=== PATIENT | male | born 1970 | race Caucasian/White ===

== ENCOUNTER 2019-04-21 21:05 | Emergency (ER) | payer BC, OTHER ==
[~2019-04-21 21:05] MED LIST: NITROGLYCERIN SUBLINGUAL 1/150 0.4 MG TAB SL ONE
[2019-04-21 21:13] VITALS: TEMP 98.5; BMI 33.4
--- NOTE | 2019-04-21 21:44 | PDOC ---
History of Present Illness - History of Present Illness Initial Comments: 04/21/19 22:42 Mr. Aponte is a 48 y/o man with no reported pmhx who presents to the ED with BP >200/100, headache, nausea, chest pains which began this afternoon around 4pm. The patient reports he felt generally tired and weak today and "just not himself". Earlier this evening he was at his father in laws house with his partner and they checked his BP which was >200/100, they then went to a [place] [facility] to recheck the BP with the same results so they brought him to the ED. The pt states he has a PCP but has not seen him in >2yrs. On ROS the pt endorses CP (5/10, substernal, non-radiating, crushing pain), numbness/ weakness in his legs, unsteadiness on his feet, LARIOS, nausea, blurry vision. He denies vomiting, constipation, diarrhea, hot/cold intolerance, dysuria, hematuria or abdominal pain. <Margaret Lomas - Last Filed: 04/22/19 00:01> <Jennifer Zapata - Last Filed: 04/22/19 00:38> - General Chief Complaint: Blood Pressure Problem Stated Complaint: HIGH B/P/HEADACHE/NAUSEA Time Seen by Provider: 04/21/19 21:42 Past History - Travel Traveled outside of the country in the last 30 days: No Close contact w/someone who was outside of country & ill: No - Psycho Social/Smoking Cessation Hx Smoking History: Never smoked Hx Alcohol Use: No Drug/Substance Use Hx: No <Margaret Lomas - Last Filed: 04/22/19 00:01> <Jennifer Zapata - Last Filed: 04/22/19 00:38> - Past Medical History Allergies/Adverse Reactions: Allergies Allergy/AdvReac Type Severity Reaction Status Date / Time No Known Allergies Allergy Verified 04/21/19 21:13 Home Medications: Ambulatory Orders Valsartan [Diovan] 40 mg PO DAILY #30 tablet 04/21/19 Review of Systems - Review of Systems Able to Perform ROS?: Yes Is the patient limited Thai proficient: No Constitutional: Yes: Weakness. No: Chills, Diaphoresis, Fever HEENTM: Yes: Blurred Vision. No: Ear Pain, Throat Pain Respiratory: No: Cough, Orthopnea, Shortness of Breath Cardiac (ROS): Yes: Chest Pain (crushing substernal CP 5-6/10). No: Palpitations, Syncope ABD/GI: Yes: Nausea. No: Abdominal Distended, Constipated, Diarrhea : No: Burning, Dysuria, Frequency Musculoskeletal: Yes: Muscle Weakness. No: Back Pain Integumentary: No: Bruising, Change in Color, Erythema Endocrine: No: Intolerance to Cold, Intolerance to Heat, Increased Urine Hematologic/Lymphatic: No: Blood Clots, Easy Bruising, Bleeding Diathesis <Margaret Lomas - Last Filed: 04/22/19 00:01> *Physical Exam - Vital Signs Last Vital Signs Temp Pulse Resp BP Pulse Ox 98.5 F 67 18 220/116 H 98 04/21/19 21:07 04/21/19 21:07 04/21/19 21:07 04/21/19 21:07 04/21/19 21:07 - Physical Exam General Appearance: Yes: Nourished, Appropriately Dressed. No: Apparent Distress HEENT: positive: EOMI, AMRIT, Normal ENT Inspection, Normal Voice, Pharynx Normal. negative: Sinus Tenderness Neck: positive: Trachea midline, Supple. negative: Tender, Carotid bruit Respiratory/Chest: positive: Lungs Clear, Normal Breath Sounds. negative: Chest Tender, Respiratory Distress, Accessory Muscle Use, Rales, Rhonchi, Wheezing Cardiovascular: positive: Regular Rhythm, Regular Rate, S1, S2. negative: Edema , JVD Gastrointestinal/Abdominal: positive: Normal Bowel Sounds, Soft. negative: Tender, Distended, Guarding, Rebound Musculoskeletal: positive: Normal Inspection. negative: CVA Tenderness Extremity: positive: Normal Capillary Refill, Normal Inspection, Normal Range of Motion, Calf Tenderness (R sided calf tenderness (pt says 6/10) with trace edema when compared to L.) Integumentary: positive: Normal Color, Dry, Warm Neurologic: positive: intermediate project manager II-XII NML intact, Fully Oriented, Alert, Normal Mood/ Affect, Normal Response, Motor Strength 5/5 <Margaret Lomas - Last Filed: 04/22/19 00:01> - Vital Signs Last Vital Signs Temp Pulse Resp BP Pulse Ox 98.5 F 59 L 16 173/101 H 98 04/21/19 21:07 04/21/19 22:35 04/21/19 22:35 04/21/19 22:35 04/21/19 22:35 <Jennifer Zapata - Last Filed: 04/22/19 00:38> ED Treatment Course - LABORATORY CBC & Chemistry Diagram: 04/21/19 22:35 04/21/19 22:35 <Margaret Lomas - Last Filed: 04/22/19 00:01> - LABORATORY CBC & Chemistry Diagram: 04/21/19 22:35 04/21/19 22:35 - ADDITIONAL ORDERS Additional order review: Laboratory Results 04/21/19 22:35 Sodium 137 Potassium 3.5 Chloride 103 Carbon Dioxide 31 Anion Gap 4 L BUN 15.0 Creatinine 0.9 Est GFR (CKD-EPI)AfAm 118.30 Est GFR (CKD-EPI)NonAf 102.07 Random Glucose 208 H Calcium 8.6 Total Bilirubin 0.4 AST 10 L ALT 30 Alkaline Phosphatase 92 Creatine Kinase 93 Troponin I < 0.02 Total Protein 6.7 Albumin 3.6 04/21/19 22:35 RBC 4.80 MCV 90.5 MCHC 34.7 RDW 13.0 MPV 8.2 Neutrophils % 48.1 Lymphocytes % 39.5 Monocytes % 8.5 Eosinophils % 2.7 Basophils % 1.2 - RADIOLOGY Radiology Studies Ordered: Category Date Time Status DUPLEX VASCUL US-1 LEG [US] Stat Ultrasound 04/21/19 22:36 Taken - Medications Given in the ED: ED Medications Discontinued Medications Generic Name Dose Route Start Last Admin Trade Name Juan PRN Reason Stop Dose Admin Nitroglycerin 0.4 mg 04/21/19 21:00 04/21/19 22:40 Nitrostat - SL 04/21/19 21:01 0.4 mg ONCE ONE Administration Nitroglycerin 0.8 mg 04/21/19 21:05 04/21/19 22:40 Nitrostat - SL 04/21/19 21:06 0.8 mg ONCE ONE Administration Nitroglycerin 0.4 mg 04/21/19 21:00 04/21/19 22:40 Nitrostat - SL 04/21/19 21:01 0.4 mg ONCE ONE Administration Oxycodone/Acetaminophen 2 combo 04/21/19 21:55 04/21/19 22:40 Percocet 5/325 - PO 04/21/19 21:56 Not Given ONCE ONE Valsartan 40 mg 04/21/19 21:55 04/21/19 22:40 Diovan - PO 04/21/19 21:56 40 mg ONCE ONE Administration <Jennifer Zapata - Last Filed: 04/22/19 00:38> Medical Decision Making - Medical Decision Making 04/21/19 23:02 Mr. Aponte is a 48 y/o man with no reported pmhx who presents to the ED with BP >200/100, headache, nausea, chest pains which began this afternoon around 4pm. On arrival to the ED the pt had an EKG which showed NSR, HR 67, with some questionable LVH, no prior EKGs to compare, no ST elevations or TWI. He was given sublingual Nitrostat, valsartan 40mg PO, and percocet. The pt reports his CP had improved but not completely resolved. His BP had improved from 220/116 on admission to 172/109. Will order: - CMP - Cardiac profile - Valsartan 80mg - Duplex RLE to r/o DVT given pt's RLE pain to palpation and trace pedal edema 04/22/19 00:01 Pt is stable, awaiting result of duplex u/s, can likely be discharged home. Will sign out to night team for continued care. <Margaret Lomas - Last Filed: 04/22/19 00:01> - Medical Decision Making 04/21/19 23:45 Labd normal; blood sugar is 200s He can follow with PMD for that Pt will be given a 1 mos supply of diovan We are awaiting sono result 04/22/19 00:38 Patient Name: RENEE APONTE THIS IS A PRELIMINARY REPORT FROM [facility] DATE OF SERVICE: 2019-04-21 22:44:27 IMAGES: 21 EXAM: DUPLEX VASCULAR US-1 LEG HISTORY: Rule out DVT COMPARISON: None. FINDINGS: There is no DVT in the right lower extremity. IMPRESSION: No DVT <Jennifer Zapata - Last Filed: 04/22/19 00:38> Discharge <Margaret Lomas - Last Filed: 04/22/19 00:01> - Discharge Information Problems reviewed: Yes <Jennifer Zapata Filed: 04/22/19 00:38> - Discharge Information Clinical Impression/Diagnosis: HTN (hypertension) Condition: Improved Disposition: HOME - Additional Discharge Information Prescriptions: Valsartan [Diovan] 40 mg PO DAILY #30 tablet - Follow up/Referral Referrals: Cuauhtemoc Saucedo MD [Primary Care Provider] - - Patient Discharge Instructions Patient Printed Discharge Instructions: The DASH Diet, DASH Diet Helps Maintain a Healthy Blood Pressure, Vegan Diet (Alternative Therapy), DI for High Blood Pressure - Post Discharge Activity
[2019-04-21] MEDS ORDERED: VALSARTAN 40 MG TABLET (FP) PO ONE (21:55)
[2019-04-21] MEDS ORDERED: VALSARTAN 80 MG TABLET (UD) ONE (22:29)
[2019-04-21 22:48] LABS: BASO % 1.2 % (0-2.0); EOS % 2.7 % (0-4.5); HEMATOCRIT 43.5 % (35.4-49); HEMOGLOBIN 15.1 GM/dL (11.7-16.9); LYMPH % 39.5 % (8-40); MCH 31.4 pg (25.7-33.7); MCHC 34.7 g/dl (32.0-35.9); MEAN CELL VOLUME 90.5 fl (80-96); MEAN PLT VOLUME 8.2 fl (7.5-11.1); MONO % 8.5 % (3.8-10.2); NEUT % 48.1 % (42.8-82.8); PLATELET COUNT 228 K/MM3 (134-434); WHITE BLOOD COUNT 8.1 K/mm3 (4.0-10.0)
[2019-04-21 23:18] LABS: ALBUMIN 3.6 g/dl (3.4-5.0); ALK PHOS 92 U/L (45-117); ANION GAP 4 MMOL/L (8-16); BILIRUBIN,TOTAL 0.4 mg/dL (0.2-1); CALCIUM 8.6 mg/dL (8.5-10.1); CHLORIDE 103 mmol/L (98-107); CO2 31 mmol/L (21-32); CREATININE 0.9 mg/dL (0.55-1.3); GLUCOSE,RANDOM 208 mg/dL (74-106); POTASSIUM 3.5 mmol/L (3.5-5.1); SGOT/AST 10 U/L (15-37); SGPT/ALT 30 U/L (13-61); SODIUM 137 mmol/L (136-145); TOT PROT 6.7 g/dl (6.4-8.2)
[2019-04-21 23:56] VITALS: BP 150/87; PULSE 54
--- NOTE | 2019-04-25 14:56 | EKG ---
Test Reason : Blood Pressure : / mmHG Vent. Rate : 060 BPM Atrial Rate : 060 BPM P-R Int : 162 ms QRS Dur : 102 ms QT Int : 416 ms P-R-T Axes : 029 -11 031 degrees QTc Int : 416 ms POOR DATA QUALITY, INTERPRETATION MAY BE ADVERSELY AFFECTED NORMAL SINUS RHYTHM MINIMAL VOLTAGE CRITERIA FOR LVH, MAY BE NORMAL VARIANT BORDERLINE ECG NO PREVIOUS ECGS AVAILABLE Confirmed by ABDULLAHI PETERSON, ASHLEY ([id number]) on 04/25/2019 2:56:28 PM Referred By: Confirmed By:ASHLEY FERNNADO MD
== END 2019-04-22 00:19 | disposition home or self-care (01) ==
LOC: JER 21:05
DX: I10 Essential (primary) hypertension (principal); R60.0 Localized edema; M79.604 Pain in right leg; R73.9 Hyperglycemia, unspecified
CPT/HCPCS: 36415; 80053; 82550; 84484; 85025; 93005; 93010; 93971-TC; 99282-25

== ENCOUNTER 2019-06-13 09:06 | Emergency (ER) | payer OTHER, BC ==
[2019-06-13 09:20] VITALS: BMI 36.1
[2019-06-13] MEDS ORDERED: KETOROLAC TROMETHAMINE 60 MG/2 ML VIAL IM ONE (09:54)
[2019-06-13] MEDS ORDERED: KETOROLAC TROMETHAMINE 60 MG/2 ML VIAL ONE (09:58)
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
[2019-06-13] MEDS ORDERED: VALSARTAN 160 MG TABLET (UD) PO ONE (11:15)
[2019-06-13] MEDS ORDERED: VALSARTAN 80 MG TABLET (UD) ONE (11:19)
[2019-06-13] MEDS ORDERED: amLODIPine BESYLATE 5 MG TABLET (FP) PO ONE (12:16)
[2019-06-13] MEDS ORDERED: amLODIPine BESYLATE 5 MG TABLET (FP) ONE (12:26)
[2019-06-13 13:28] VITALS: BP 154/98; PULSE 70; TEMP 97.6
== END 2019-06-13 14:00 | disposition home or self-care (01) ==
LOC: JERFT 09:06
DX: S00.81XA Abrasion of other part of head, initial encounter (principal); M79.602 Pain in left arm; Z01.31 Encounter for examination of blood pressure with abnormal findings; S40.812A Abrasion of left upper arm, initial encounter; V43.51XA Car driver injured in collision with sport utility vehicle in traffic accident, initial encounter; Y93.89 Activity, other specified; Y92.410 Unspecified street and highway as the place of occurrence of the external cause
CPT/HCPCS: 99282-25